=== PATIENT | male | born 1960 | race Caucasian/White ===

== ENCOUNTER → 2023-07-29 07:20 | Outpatient (REF) | payer OTHER, SELFPAY | LOC: DHCBC/DCA 07:20 | PROVIDERS: ATTENDING PHYSICIAN Internal Medicine Cardiovascular Disease; FAMILY PHYSICIAN Physician Assistant | DX: Z95.5 Presence of coronary angioplasty implant and graft (principal); I20.89 Other forms of angina pectoris | CPT/HCPCS: 78452; 93017; A9500; J2785 ==

== ENCOUNTER 2023-08-03 06:34 | Day surgery (SDC) | payer OTHER, SELFPAY ==
[2023-08-03] VITALS (19 sets, daily range): BP systolic 110–164; BP diastolic 35–105; BMI 31.8
[2023-08-03] MEDS: NSS 346 ML IV (07:23)
[2023-08-03 07:36] LABS: Hematocrit 37.3 % (39.0-52.0); Hemoglobin 13.8 g/dL (13.0-18.0); Mean Corpuscular Hgb 31.2 pg (27.0-31.0); Mean Corpuscular Volume 84.2 fL (80.0-94.0); Platelet Count 165 10^3/uL (130-400); Red Blood Cell Count 4.43 10^6/uL (4.70-6.10); Red Cell Dist. Width 12.4 % (11.5-14.5); White Blood Cell Count 4.1 10^3/uL (4.8-10.8)
[2023-08-03 07:42] LABS: ALT (SGPT) 31 U/L (0-50); AST (SGOT) 26 U/L (17-59); Albumin 4.2 g/dl (3.5-5.0); Alkaline Phosphatase 79 U/L (38-126); Blood Urea Nitrogen 14 mg/dl (9-20); Calcium 8.8 mg/dl (8.4-10.2); Carbon Dioxide 23 mmol/L (22-30); Chloride 104 mmol/L (98-107); Estimated Creatinine Clearance > 125 ml/min; Glucose 103 mg/dl (70-99); Potassium 4.6 mmol/L (3.5-5.1); Sodium 135 mmol/L (135-145); Total Bilirubin 0.6 mg/dl (0.2-1.3); Total Protein 6.7 g/dl (6.3-8.2); eGFR > 60.00
[2023-08-03 08:40] LABS: ACT-LR - POC 340 Seconds (116-155)
--- NOTE | 2023-08-03 08:50 | ITS.CL.CATH ---
Channel Machine Operator - Catheterization
Cardiac Catheterization
Procedure Report:
CARDIAC CATHETERIZATION REPORT
Date of Procedure: 08/03/2023
Referring: Shayne Zelaya M.D.
INDICATION: Chest discomfort, abnormal stress test, known coronary artery disease with prior PCI.
PROCEDURE:
1. Left heart catheterization.
2. Coronary angiography.
3. Unsuccessful PTCA/PCI of OM 3.
ACCESS:
6 Urdu right radial artery.
CATHETERS:
1. 5 Urdu JR4.
2. 5 Urdu JL 3.5.
3. 6 Urdu EBU 3.5 guiding catheter.
HEMODYNAMIC DATA
Weight (kg): 115.2
AO (s/d/x, mmHg): 113/72/91
LV (s/x mmHg): 115/20
LEFT VENTRICULOGRAPHY: Not performed.
CORONARY ANGIOGRAPHY
Dominance: Right.
Left Main: Normal size, bifurcating vessel. There is no coronary artery disease.
LAD: Normal size vessel giving rise to 1 large diagonal. There is a 40-50% lesion in the proximal/ostial LAD. There is a 50% lesion in the ostium of the diagonal.
Ramus: Congenitally absent.
Circumflex: Large size, nondominant vessel giving rise to 3 obtuse marginals. There is a patent stent in the proximal/mid circumflex spanning the origin of the second obtuse marginal. There is a stent in the proximal OM 2 which is chronically
totally occluded. There is a stent in OM 3 with a hazy ISR occlusion and DONNIE I flow in the distal vessel.
RCA: Normal size, dominant vessel with an upward takeoff leading into a conus which is generally difficult to cannulate. There is a 30% lesion in the mid vessel. There is mild to moderate tapering of the distal RCA.
INTERVENTION(S)
1. Successful wiring of the hazy OM 3 ISR lesion.
2. Unsuccessful PTCA of the OM 3 ISR lesion.
Narrative:
The decision was made to attempt percutaneous coronary intervention, beginning with wiring the vessel in an attempt to establish the chronicity. The diagnostic catheter was removed over a wire and a 6Fr EBU 3.5 guiding catheter was advanced to the
aortic root and seated in the left main coronary artery. Additional heparin was given and a Power Turn Flex wire was advanced into the mid OM 3. The power turn flex wire would not advance into the distal OM 3 beyond the ISR lesion in question. A
quick cross microcatheter was advanced to support the power turn flex wire. Even with the support, the power turn flex wire would not advance beyond the lesion in question and was consistently deflected into a sidebranch. Keeping the quick cross
microcatheter in place, the power turn flex wire was removed and replaced with a Fielder XT wire. The Fielder XT wire was able to cross the lesion and was seated in the distal obtuse marginal. The wire tip was visibly free and dancing with torque.
The quick cross microcatheter was removed and a 2.0 x 12 semicompliant balloon was advanced. Unfortunately, during this process the Fielder wire was withdrawn proximal to the lesion. The Fielder XT wire was readvanced, initially deflecting into
the sidebranch as the power turn flex wire had done. Ultimately, the wire was redirected into the distal OM 3, beyond the ISR lesion. The balloon was advanced over the Fielder XT wire but would not cross the lesion, confirming that this lesion was
in fact a chronic 1 and not soft plaque or acute in any way. Given the chronic nature of his lesions with moderately elevated EDP and a single antianginal, the decision was made to abandon this intervention and to revisit after the patient has been
placed on maximal medical therapy. The coronary wire was withdrawn and the guide was disengaged from the artery. The catheter was removed over a standard J-wire.
Closure Device: Vascular band.
Radiation (mGy): 883.36
DAP (cm2.Gy): 85.8762
Fluoroscopy time (minutes): 14.7
Sedation time (minutes): 61
CONCLUSIONS
1. Right dominant circulation with a difficult to cannulate RCA, a 30% mid RCA lesion with mild to moderate tapering of the distal RCA, a 40-50% proximal/ostial LAD lesion and a 50% lesion in the ostium of the diagonal. There is a patent stent in
the proximal/mid circumflex spanning the origin of OM 2. There is a BROADCAST CHIEF ENGINEER ISR of the OM 2 stent as well as a BROADCAST CHIEF ENGINEER ISR of the distal OM 3 stent.
2. Successful wiring but unsuccessful intervention on the OM 3 lesion, confirming the chronic nature of the occlusion.
3. Moderately elevated filling pressures (LVEDP = 20 mmHg at 115.2 kg).
RECOMMENDATIONS:
1. Expectant management after cardiac catheterization via right radial approach.
2. Limited weight bearing on the right wrist for one week.
3. Maintain secondary prevention with high-dose, high potency statin.
4. Medical management of circumflex ISR lesions. Continue metoprolol 25 mg daily and start amlodipine 2.5 mg daily.
5. Start furosemide 40 mg p.o. daily for moderately elevated filling pressures.
6. If the patient were to continue to have refractory chest discomfort, we could consider BROADCAST CHIEF ENGINEER PCI.
Copy to: Shayne Zelaya M.D., Peg Schaffer PA-C
Jhon Tovar DO, FACC, FACP
[2023-08-03] MEDS: LASIX 40 MG IV (09:59)
[2023-08-03] MEDS: NSS 1000 IV (10:06)
--- NOTE | 2023-08-03 11:18 | PTCARENOTE ---
Patient states that he is having change in vision after the Lasix, BP is 143/84. AUTO DAMAGE ADJUSTER Liya Holley is made aware.
--- NOTE | 2023-08-03 11:49 | PTCARENOTE ---
DORR OPERATOR Liya Herrmann was by to discuss pt. change of vision. She informed him that this can be a side effect of the contrast dye used intra op. She encourages the patient to push fluids. Patient states that the change in vision has already resolved.
== END 2023-08-03 12:40 | disposition home or self-care (01) ==
LOC: CATH 06:34
PROVIDERS: ATTENDING PHYSICIAN Internal Medicine Cardiovascular Disease; FAMILY PHYSICIAN Physician Assistant; OTHER PHYSICIAN Internal Medicine Cardiovascular Disease
DX: I25.10 Atherosclerotic heart disease of native coronary artery without angina pectoris (principal); T82.855A Stenosis of coronary artery stent, initial encounter; Z95.5 Presence of coronary angioplasty implant and graft; R07.89 Other chest pain; R94.39 Abnormal result of other cardiovascular function study; E78.2 Mixed hyperlipidemia; Z79.82 Long term (current) use of aspirin
CPT/HCPCS: C1894; C1769; C1725; 80053; 85027; 85347; 92943; 93458; Q9967

== ENCOUNTER → 2023-08-18 13:56 | Outpatient (REF) | payer OTHER, SELFPAY | LOC: RCS 13:56 | PROVIDERS: ATTENDING PHYSICIAN Internal Medicine Cardiovascular Disease; FAMILY PHYSICIAN Physician Assistant | DX: Z95.5 Presence of coronary angioplasty implant and graft (principal) | CPT/HCPCS: 93306 ==